=== PATIENT | male | born 2000 | race Hispanic/Latino ===

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

== ENCOUNTER 2022-07-22 13:39 | Outpatient (CLI) | payer OTHER | END 2022-07-22 13:40 | disposition home or self-care (01) | LOC: SCSMRI 13:39 | PROVIDERS: ATTEND Orthopaedic Surgery | DX: M23.91 Unspecified internal derangement of right knee (principal); S83.511A Sprain of anterior cruciate ligament of right knee, initial encounter; S70.11XA Contusion of right thigh, initial encounter; S82.831A Other fracture of upper and lower end of right fibula, initial encounter for closed fracture; S82.191A Other fracture of upper end of right tibia, initial encounter for closed fracture; S72.431A Displaced fracture of medial condyle of right femur, initial encounter for closed fracture; Z98.890 Other specified postprocedural states ==

== ENCOUNTER 2022-12-25 07:26 | Observation (INO) | payer BC ==
[2022-12-25] MEDS ORDERED: Midazolam HCl 2 mg/2 ml Vial ONE (08:22)
[2022-12-25] MEDS ORDERED: Bupivacaine PF 0.5% 30 ML VIAL ONE (08:22)
[2022-12-25] MEDS ORDERED: fentaNYL 50 mcg/mL 1 mL Vial ONE ×2 (08:22→09:17)
[2022-12-25] MEDS ORDERED: Sevoflurane 250 ML INH ANEST BOTTLE ONE (09:20)
[2022-12-25] MEDS ORDERED: Sodium Chloride 0.9% 100 ML ONE (09:24)
[2022-12-25] MEDS ORDERED: CEFAZOLIN 2 GM VIAL ONE (09:24)
[2022-12-25] MEDS ORDERED: HYDROcodone/Acetaminophen 10/325 mg Tablet PO PRN (09:30)
[2022-12-25] MEDS ORDERED: Ropivacaine 0.2% 550 ML 550 ML NERVE BLCK SCH (09:30)
[2022-12-25] MEDS ORDERED: Ondansetron PF 4 MG/2 ML Vial IVP PRN (09:30)
[2022-12-25] MEDS ORDERED: Zolpidem Tartrate 5 MG TAB PO PRN (09:30)
[2022-12-25] MEDS ORDERED: Promethazine HCl 25 MG/ML VIAL IM PRN (09:30)
[2022-12-25] MEDS ORDERED: fentaNYL 50 mcg/mL 1 mL Vial SLOW IVP PRN (09:30)
[2022-12-25] MEDS ORDERED: traMADol HCl 50 MG TAB PO PRN ×2 (09:30)
[2022-12-25] MEDS ORDERED: PROPOFOL 200 MG/20 ML VIAL ONE (09:37)
[2022-12-25] MEDS ORDERED: Lidocaine 1% PF 5 ML VIAL ONE (09:37)
[2022-12-25] MEDS ORDERED: Ondansetron PF 4 MG/2 ML Vial ONE (09:37)
[2022-12-25] MEDS ORDERED: Bupivacaine HCl 0.5%/Epinephrine 1:200,000/PF 30 ml Vial ONE (09:37)
[2022-12-25] MEDS ORDERED: PHENYLEPHRINE-NS 100 MCG/ML 10 ML SYRINGE ONE (09:37)
[2022-12-25] MEDS ORDERED: Dexamethasone 20 MG/5 ML VIAL ONE (09:37)
[2022-12-25] MEDS ORDERED: Ketorolac Tromethamine 30 MG/ML VIAL ONE (09:37)
[2022-12-25] MEDS ORDERED: HYDROcodone/Acetaminophen 7.5/325 mg Tablet PO PRN ×2 (10:55)
[2022-12-25] MEDS ORDERED: Milk Of Magnesia 30 ML UDCUP PO PRN (10:55)
[2022-12-25] MEDS ORDERED: diphenhydrAMINE 50 MG CAP PO PRN (10:55)
[2022-12-25] MEDS ORDERED: Acetaminophen 500 MG TAB PO PRN (10:55)
[2022-12-25] MEDS ORDERED: Bisacodyl 10 MG SUPP PR PRN (10:55)
[2022-12-25] MEDS ORDERED: Methocarbamol 500 MG TAB PO PRN (10:55)
[2022-12-25 14:45] VITALS: BMI 27.4
[2022-12-25] MEDS: Ketorolac Tromethamine 30 MG/ML VIAL IVP SCH ×3 (15:45→22:20)
[2022-12-25] MEDS: Dextrose 5 %-0.45 % NaCl 1,000 ML IV SCH ×2 (16:24→21:24)
[2022-12-25] MEDS: CEFAZOLIN 2 GM in Sodium Chloride 0.9% 100 ML IVPB SCH (17:13)
[2022-12-25] MEDS: Famotidine 20 MG TAB PO SCH (20:18)
[2022-12-25] MEDS: HYDROcodone/Acetaminophen 10/325 mg Tablet PO PRN (20:18)
[2022-12-26] MEDS: CEFAZOLIN 2 GM in Sodium Chloride 0.9% 100 ML IVPB SCH (02:19)
[2022-12-26] MEDS: Ketorolac Tromethamine 30 MG/ML VIAL IVP SCH (06:12)
[2022-12-26] MEDS: Dextrose 5 %-0.45 % NaCl 1,000 ML IV SCH (06:18)
[2022-12-26 08:01] VITALS: BP 144/72; TEMP 97.1
[2022-12-26] MEDS: Famotidine 20 MG TAB PO SCH (08:07)
[2022-12-26] MEDS: HYDROcodone/Acetaminophen 10/325 mg Tablet PO PRN (08:08)
== END 2022-12-26 10:05 | disposition home or self-care (01) ==
LOC: SDC 07:26 → SURG A 10:55
PROVIDERS: ADMIT Orthopaedic Surgery; ATTEND Orthopaedic Surgery
PROC: 0MQN4ZZ Repair Right Knee Bursa and Ligament, Percutaneous Endoscopic Approach (ICD-10-PCS; principal; 2022-12-25)
DX: S83.511A Sprain of anterior cruciate ligament of right knee, initial encounter (principal); X58.XXXA Exposure to other specified factors, initial encounter; Y93.23 Activity, snow (alpine) (downhill) skiing, snowboarding, sledding, tobogganing and snow tubing
CPT/HCPCS: A4306; C1713; C1889; J1100; J1885; J2250; J2405; J2704; J2795; J3010; J3490; S0020